=== PATIENT | female | born 1955 | race Caucasian/White ===

== ENCOUNTER 2017-09-28 16:45 | Outpatient (CLI) | payer OTHER ==
[2011-10-03 06:52] VITALS: BMI 33.0
== END 2017-09-28 23:59 | disposition home or self-care (01) ==
LOC: D.MAMMO 16:45
DX: Z12.31 Encounter for screening mammogram for malignant neoplasm of breast (principal)

== ENCOUNTER 2018-10-14 13:34 | Emergency (ER) | payer OTHER ==
[~2018-10-14] VITALS: Ht 174 cm; Wt 81.2 kg
[2018-10-14 13:41] VITALS: Ht 174 cm; Wt 81.2 kg
[2018-10-14] MEDS ORDERED: MOBIC7.5 MG (13:42)
[2018-10-14] MEDS ORDERED: ROBAXIN500 MG PO (16:07)
[2018-10-14 16:20] VITALS: BP 129/76
== END 2018-10-14 16:21 | disposition home or self-care (01) ==
LOC: D.ER 13:34
DX: S16.1XXA Strain of muscle, fascia and tendon at neck level, initial encounter (principal); V43.52XA Car driver injured in collision with other type car in traffic accident, initial encounter; Y93.89 Activity, other specified; Y92.410 Unspecified street and highway as the place of occurrence of the external cause; M50.30 Other cervical disc degeneration, unspecified cervical region

== ENCOUNTER 2019-10-02 09:00 | Outpatient (CLI) | payer OTHER ==
[2018-10-14 13:41] VITALS: BMI 33.0
[~2019-10-02 09:00] MED LIST: MOBIC7.5 MG; ROBAXIN500 MG PO
== END 2019-10-02 10:00 | disposition home or self-care (01) ==
LOC: D.MAMMO 09:00
PROVIDERS: ATTEND Family Medicine
DX: Z12.31 Encounter for screening mammogram for malignant neoplasm of breast (principal)

== ENCOUNTER → 2021-01-04 14:00 | Outpatient (CLI) | payer BC, OTHER ==
[2020-11-16 10:56] VITALS: BMI 27.2
[~2021-01-04 14:00] MED LIST changes: +ADIPEX-P37.5 M1 PO; +MERIBIN5 MG PO; +SYNTHROID50 MCG PO; +VITAMIN D-32000 UNI2 PO
== END | disposition home or self-care (01) ==
LOC: D.MAMMO 14:00
PROVIDERS: ATTEND Family Medicine
DX: R92.8 Other abnormal and inconclusive findings on diagnostic imaging of breast (principal)